=== PATIENT | female | born 1950 | race Caucasian/White ===

== ENCOUNTER → 2019-08-16 10:47 | Outpatient (BNVA) | payer MEDICARE, OTHER, SELFPAY | PROVIDERS: Family Provider Nurse Practitioner; Referring Provider Nurse Practitioner; Visit Provider Specialist | DX: M25.511 Pain in right shoulder (principal); S42.021A Displaced fracture of shaft of right clavicle, initial encounter for closed fracture; X58.XXXA Exposure to other specified factors, initial encounter | CPT/HCPCS: 73030 ==

== ENCOUNTER → 2019-09-04 10:47 | Outpatient (BNVA) | payer MEDICARE, OTHER, SELFPAY | PROVIDERS: Family Provider Nurse Practitioner; Visit Provider Specialist | DX: S42.001A Fracture of unspecified part of right clavicle, initial encounter for closed fracture (principal) | CPT/HCPCS: 73000 ==

== ENCOUNTER → 2019-09-20 14:58 | Outpatient (BNVA) | payer MEDICARE, OTHER, SELFPAY | PROVIDERS: Family Provider Nurse Practitioner; Visit Provider Nurse Practitioner | DX: R10.32 Left lower quadrant pain (principal); E78.2 Mixed hyperlipidemia | CPT/HCPCS: 80053; 81000; 85025 ==

== ENCOUNTER 2019-09-21 07:37 | Outpatient (CLI) | payer MEDICARE, OTHER, SELFPAY ==
--- NOTE | 2019-09-21 09:30 | CT_ITS ---
WS: [id number] CT ABDOMEN AND PELVIS NONCONTRAST HISTORY: pain abdomen, LEFT lower quadrant pain. TECHNIQUE: Imaging performed through the abdomen and pelvis. Coronal and sagittal reformats are submi tted. All CT scans at [facility] use at least one of these dose optimization techniques: automated exposure control; mA and/or kV adjustment per patient size (includes targeted exams where d ose is matched to clinical indication); or iterative reconstruction. DLP: 718.43 mGy.cm COMPARISON: None available. Lower thorax: Lung bases are clear. Small hiatal hernia. Liver: Normal, no mass or intrahepatic dilatation. Gallbladder: Unremarkable. Pancreas: Normal. Spleen: Markedly enlarged spleen extending over length of 17.2 cm. There are a few scattered calcific ations within the liver. Adrenal glands: Normal. Right kidney: Normal size with no stones, masses or atrophy. Left kidney: Normal size with no stones, mass or atrophy. Atherosclerosis of aorta. Small periaortic lymph nodes. No significant adenopathy. GI tract: Numerous diverticula in the descending and sigmoid colon. There is an area of inflammation and pericolonic stranding in the sigmoid region where there is a large distribution of diverticula. N o abscess or free air is identified. There is mild asymmetric thickening of the rectum, greater soft tissue thickening along the LEFT which may be some fluid. Abdominal wall: Intact. Pelvis: Normal. Osseous structures: S-shaped curvature lumbar spine. No bone destruction. Asymmetric disc bulging at L3-4 with mild central and LEFT foraminal stenosis. CT/CT abdomen pelvis wo con [id number] IMPRESSION: 1. Sigmoid diverticulitis without abscess or perforation identified at this ti me. 2. Innumerable sigmoid diverticula with additional scattered diverticula in th e descending colon. 3. Mild rectal wall thickening. 4. Marked splenomegaly. Probably on the basis of portal hypertension. Lymphoma should also be considered as a possible etiology. No adenopathy is identified.
== END 2019-09-21 07:38 | disposition home or self-care (01) ==
PROVIDERS: PCP Nurse Practitioner; Visit Provider Nurse Practitioner
DX: R10.32 Left lower quadrant pain (principal); I70.0 Atherosclerosis of aorta; K57.32 Diverticulitis of large intestine without perforation or abscess without bleeding; K57.30 Diverticulosis of large intestine without perforation or abscess without bleeding; R16.1 Splenomegaly, not elsewhere classified
CPT/HCPCS: 74176

== ENCOUNTER → 2019-10-03 13:07 | Outpatient (BNVA) | payer MEDICARE, OTHER, SELFPAY | PROVIDERS: PCP Nurse Practitioner; Visit Provider Nurse Practitioner | DX: R73.09 Other abnormal glucose (principal) | CPT/HCPCS: 83036 ==

== ENCOUNTER 2019-12-07 06:48 | Day surgery (SDC) | payer MEDICARE, OTHER, SELFPAY ==
[2019-12-06 09:47] VITALS: BMI 28.7
[2019-12-07 07:06] VITALS: BP 128/73; PULSE 66; RESP 18; TEMP 36.2
[2019-12-07] MEDS: sodium chloride 0.9% 1,000 ML 30 ML IV (07:13)
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
--- NOTE | 2019-12-07 07:47 | W.PM.OPSUD ---
Surgery/Procedure H&P Update DATE OF PROCEDURE: December 07, 2019 DATE H&P PERFORMED: 11/14/19 H&P UPDATE INFORMATION: No changes to prior documentation PREOP DIAGNOSIS: rectal pain, diarrhea PLANNED PROCEDURE: Operation Date: 12/07/19 08:00 Proposed Procedures p Colonoscopy(Not Applicable) - Kota Vuong MD
[2019-12-07 08:28] VITALS: BP 101/59; PULSE 66; RESP 16; TEMP 36.2; O2SAT 100
== END 2019-12-07 08:55 | disposition home or self-care (01) ==
PROVIDERS: PCP Nurse Practitioner; Visit Provider Surgery
PROC: 0DJD8ZZ Inspection of Lower Intestinal Tract, Via Natural or Artificial Opening Endoscopic (ICD-10-PCS; CPT 45378; principal; 2019-12-07 08:00)
DX: K62.89 Other specified diseases of anus and rectum (principal); R19.7 Diarrhea, unspecified; K57.30 Diverticulosis of large intestine without perforation or abscess without bleeding; K63.5 Polyp of colon; I48.91 Unspecified atrial fibrillation; I10 Essential (primary) hypertension; K21.9 Gastro-esophageal reflux disease without esophagitis; E78.2 Mixed hyperlipidemia
CPT/HCPCS: 12345; 45385; 88305; J2704; J7030

== ENCOUNTER → 2020-06-11 12:19 | Outpatient (BNVA) | payer MEDICARE, OTHER, SELFPAY | PROVIDERS: PCP Nurse Practitioner; Visit Provider Internal Medicine Cardiovascular Disease | DX: R06.02 Shortness of breath (principal); I48.11 Longstanding persistent atrial fibrillation; Z79.01 Long term (current) use of anticoagulants; I10 Essential (primary) hypertension; E78.2 Mixed hyperlipidemia; I34.0 Nonrheumatic mitral (valve) insufficiency | CPT/HCPCS: 80048; 80162 ==

== ENCOUNTER → 2020-07-09 14:45 | Outpatient (BNVA) | payer MEDICARE, OTHER, SELFPAY | PROVIDERS: PCP Nurse Practitioner; Visit Provider Nurse Practitioner | DX: R53.83 Other fatigue (principal); I10 Essential (primary) hypertension; I48.11 Longstanding persistent atrial fibrillation; Z79.01 Long term (current) use of anticoagulants | CPT/HCPCS: 80076; 82607; 83550; 84443; 85025 ==

== ENCOUNTER 2020-07-18 09:16 | Outpatient (CLI) | payer MEDICARE, OTHER, SELFPAY ==
[2020-07-18 09:55] LABS: Basophils % 0.5 %; Eosinophils % 0.8 %; Hematocrit 32.6 % (37.0-47.0); Hemoglobin 9.4 g/dL (11.5-15.3); Lymphocytes # 1.1 10^3/uL (0.8-4.8); Lymphocytes % 27.3 %; Mean Corpuscular HGB Conc 28.8 g/dL (30.0-36.0); Mean Corpuscular Hemoglobin 22.3 pg (28.0-34.0); Mean Corpuscular Volume 77.4 fL (81-99); Mean Platelet Volume 10.1 fL (7.4-10.4); Monocytes # 0.2 10^3/uL (0.2-0.9); Monocytes % 6.2 %; Neutrophils % 64.9 %; Nucleated Red Blood Cells % 0 %; Platelet Count 150 10^3/cmm (130-400); Red Blood Count 4.21 10^6/uL (4.1-5.3); Red Cell Distribution Width 17.8 % (12.1-15.1); White Blood Count 3.9 10^3/uL (4.0-10.0)
--- NOTE | 2020-07-18 15:07 | ONC CON_ITS ---
Dr. Browning New Patient Note Patient: Kristal Chung Unit #: [id number]: [id number] Dicatated By: Herminio Browning M.D.Date of Visit: Jul 18, 2020 Onc MED New Patient/Consult Referring Physician: Danita Mendosa History of Present Illness: Ms. Kristal Chung, is a 70-year-old female with a history of atrial fibrillation, on chronic anticoagulation with warfarin, hypertension, mitral regurg, seizure disorder, right shoulder dislocation, went to her PMD with progressive generalized weakness and fatigue and weight loss, as per patient she used to weigh around 185 pounds now down to 142 pounds, poor appetite and her lab work-up done on July 09, 2020 in her PMDs office showed white blood count 4.1 hemoglobin 9.7 hematocrit 33.1 MCV 79.2 platelets 179,000 with a normal differential iron studies shows iron 24, iron saturation 7.2 TIBC 331, B12 339, TSH 2.74, bilirubin 0.9. As per patient she underwent colonoscopy on December 07, [address] Vuong told her she got couple of polyps biopsies were obtained and polyp in the distal ascending colon shows hyperplastic polyp and in the rectum shows tubulovillous adenoma with high-grade dysplasia, subsequently patient was referred to Dr. Erick Mooney in [place], as per patient she underwent further endoscopic evaluation and resection of the rectal mass, and she was told by Dr. Mooney that there was no evidence of cancer and now scheduled to see him in August 2020 for follow-up and possible limited colonoscopy. Patient said he had no EGD done in November. And patient denies any blood in her stools denies any melena or hematochezia denies any hemoptysis or hematemesis denies any nosebleed or gum bleed denies any hematuria or vaginal bleeding denies any jaundice., Denies any night sweats, denies any recurrent fever but weight loss as mentioned above due to poor appetite due to decrease in activity due to early fatigue and progressive generalized weakness and fatigue. Patient denies any peripheral lymphadenopathy denies any abdominal fullness. Or abdominal pain. Patient has no history of anemia in the past Patient denies any Past Medical History: Ms. Chung's medical history consists of atrial fibrillation, hyperlipidemia, hypertension, mitral regurgitation, and siezure disorder. Past Surgical History: Ms. Novaks surgical/procedural history consists of breast biopsy, hysterectomy, and rectal surgery. Medications: Ala-Gold (2.5 %) Cream Topical t.i.d., Alph-E (400 Units) Capsule Oral daily, Cholecalciferol (50 mcg ) Tablet Oral daily, Coumadin Tablet Oral, Coumadin Tablet Oral, Cozaar (100 mg) Tablet Oral daily, Digox (250 mcg) Tablet Oral daily, Docusate Sodium (100 mg) Tablet Oral daily, Ferrous Sulfate 1 Tablet (of 325 (65 fe) mg) Oral b.i.d., hydroCHLOROthiazide (25 mg) Tablet Oral daily, Lopressor (50 mg) Tablet Oral b.i.d., Magnesium Oxide (400 mg) Capsule Oral daily, QC Zinc Tablet Oral Allergies: Atorvastatin Calcium and Fenofibrate. Social History: Ms. Chung is and she is unemployed. Ms. Chung has never smoked. She has no history of drinking. Ms. Chung reports the following support systems: lives with spouse, significant other, family, or friends. Family History: Ms. Chung's mother is alive. Ms. Chung's father at age 93: prostate cancer. Review Of Symptoms: Review of Systems is not available for this patient. Vital Signs: Performed on Jul 18, 2020 11:51: 8, 0, 0.00, 0.00 sq.m, 99 %, 66 /min, 18 /min, 128/67 mm(hg), 98.5 F, and 142.2 lbs (HIGH). Performance Status: 1 - No physically strenuous activity, but ambulatory and able to carry out light or sedentary work (e.g. office work, light house work). (ECOG) Physical Examination: ENMT - No mouth sores, no thrush, no jaundice, Respiratory - Lungs are clear to auscultation, Cardiovascular - Regular rate and rhythm of heart, Abdomen - Soft, bowel sounds present, Extremities - No visible edema. Lab/Imaging: Most recent lab results are not available for this patient. Impression: Microcytic hypochromic anemia most likely due to iron deficiency as labs done on July 09, 2020 in PMDs office shows iron 24 iron saturation 7.2% and TIBC 331, B12 339 hemoglobin 9.7 hematocrit 33.1 MCV 79.2 with a normal white blood count and platelets. Etiology most likely GI bleeding especially on anticoagulation, could be peptic ulcer disease or small bowel AVMs as colonoscopy done in November 2019 showed no obvious sign of bleeding but colon and rectal polyp status post resection. Or iron malabsorption but less likely Atrial fibrillation, on Coumadin Hypertension History of seizure disorder Plan: Discussed with patient regarding her labs showed white blood count 3.9 hemoglobin 9.4 hematocrit 33.6 platelets 150,000 MCV 77.4 Clinically, patient doing reasonably well in mild to moderate distress due to progressive generalized weakness and fatigue due to iron deficiency anemia, anemia work-up done in PMDs office on July 09, 2020 confirmed iron deficiency, most likely due to chronic GI blood loss probably from small bowel AVMs or peptic ulcer disease or gastritis as colonoscopy done in November 2019 was unremarkable for as far as bleeding is concerned she had 1 polyp which was hyperplastic polyp removed from ascending colon and other 1 which showed tubulovillous adenoma with high-grade dysplasia in the rectum for which she was referred to Dr. Mooney in [place] where she underwent endoscopic resection of rectal polyp, as per patient it was nonmalignant and now she is supposed to see Dr. Mooney for follow-up in August 2020. At this point, we will refer her to Dr. Vuong for EGD to rule out upper GI as source of bleeding and if unremarkable, will consider capsule endoscopy to rule out small bowel AVMs causing chronic GI blood loss. Mild leukopenia, etiology unclear, will monitor In the meantime we will start her on iron supplement she will take [id number] iron supplement twice a day for 1 month and then return to clinic in a month with CBC and iron studies if it shows persistent iron deficiency or if patient has iron intolerance, will consider parenteral iron. Signed By: Herminio Browning M.D. <<Signature on File>>
== END 2020-07-18 09:17 | disposition home or self-care (01) ==
LOC: ONCMED 09:19
PROVIDERS: PCP Nurse Practitioner; Visit Provider Internal Medicine Hematology & Oncology
DX: D50.9 Iron deficiency anemia, unspecified (principal); D72.819 Decreased white blood cell count, unspecified; Z87.19 Personal history of other diseases of the digestive system; I10 Essential (primary) hypertension; I48.91 Unspecified atrial fibrillation; Z79.01 Long term (current) use of anticoagulants
CPT/HCPCS: 36415; 85025; 99204

== ENCOUNTER → 2020-08-05 11:15 | Outpatient (BNVA) | payer MEDICARE, OTHER, SELFPAY | PROVIDERS: PCP Nurse Practitioner; Visit Provider Nurse Practitioner | DX: R05 Cough (principal); J90 Pleural effusion, not elsewhere classified | CPT/HCPCS: 71046 ==

== ENCOUNTER → 2020-08-16 08:18 | Outpatient (BNVA) | payer MEDICARE, OTHER, SELFPAY | PROVIDERS: PCP Nurse Practitioner; Visit Provider Surgery | DX: Z11.52 Encounter for screening for COVID-19 (principal); Z20.822 Contact with and (suspected) exposure to COVID-19 | CPT/HCPCS: 87635 ==

== ENCOUNTER → 2020-08-21 10:03 | Outpatient (BNVA) | payer MEDICARE, OTHER, SELFPAY | PROVIDERS: PCP Nurse Practitioner; Visit Provider Nurse Practitioner | DX: R05 Cough (principal) | CPT/HCPCS: 71046 ==

== ENCOUNTER 2020-08-22 06:19 | Day surgery (SDC) | payer MEDICARE, OTHER, SELFPAY ==
[2020-08-20 13:42] VITALS: BMI 25.9
--- NOTE | 2020-08-22 06:52 | W.PM.OPSUD ---
Surgery/Procedure H&P Update DATE OF PROCEDURE: August 22, 2020 DATE H&P PERFORMED: 08/13/20 H&P UPDATE INFORMATION: No changes to prior documentation PREOP DIAGNOSIS: rectal pain, diarrhea PLANNED PROCEDURE: Operation Date: 08/22/20 08:00 Proposed Procedures p EGD 71454 d50.9 R16.1 R63.4(Not Applicable) - Kota Vuong MD
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
[2020-08-22 07:16] VITALS: BP 142/91; PULSE 73; RESP 16; TEMP 36.6; O2SAT 99
[2020-08-22 08:01] VITALS: BP 110/58; PULSE 73; RESP 18; TEMP 36.1; O2SAT 97
--- NOTE | 2020-08-22 08:02 | ANE.PACU2 ---
Inpatient post-anesthesia follow up: Airway intact: Yes Vital signs: Temperature 97.8 F Pulse Rate 73 Respiratory Rate 16 Blood Pressure 142/91 Pulse Oximetry 99 Oxygen Delivery Me thod Room Air Oxygen Flow Rate Fraction of Inspir ed Oxygen Hydration adequate: Yes Nausea and vomiting: No Pain level: 1 Mental status: Baseline
[2020-08-22 08:16] VITALS: BP 121/60; PULSE 72; RESP 18; O2SAT 99
[2020-08-22] MEDS: sodium chloride 0.9% 1,000 ML 30 ML IV (08:29)
== END 2020-08-23 08:57 | disposition home or self-care (01) ==
PROVIDERS: PCP Nurse Practitioner; Visit Provider Surgery
PROC: 0DJ08ZZ Inspection of Upper Intestinal Tract, Via Natural or Artificial Opening Endoscopic (ICD-10-PCS; CPT 43235; principal; 2020-08-22 08:00)
DX: K62.89 Other specified diseases of anus and rectum (principal); R19.7 Diarrhea, unspecified; I48.91 Unspecified atrial fibrillation; I10 Essential (primary) hypertension; E78.2 Mixed hyperlipidemia; Z79.01 Long term (current) use of anticoagulants
CPT/HCPCS: 12345; 43235; J2704; J7030

== ENCOUNTER 2020-08-23 07:48 | Outpatient (CLI) | payer MEDICARE, OTHER, SELFPAY ==
[2020-08-23 08:20] LABS: Basophils % 0.5 %; Eosinophils % 0.9 %; Hematocrit 33.4 % (37.0-47.0); Hemoglobin 9.7 g/dL (11.5-15.3); Lymphocytes # 1.3 10^3/uL (0.8-4.8); Lymphocytes % 29.8 %; Mean Corpuscular Hemoglobin 22.9 pg (28.0-34.0); Mean Corpuscular Volume 78.8 fL (81-99); Mean Platelet Volume 9.6 fL (7.4-10.4); Monocytes # 0.3 10^3/uL (0.2-0.9); Monocytes % 7.8 %; Neutrophils # 2.57 10^3/uL (1.8-7.7); Neutrophils % 60.8 %; Nucleated Red Blood Cells % 0 %; Platelet Count 155 10^3/cmm (130-400); Red Blood Count 4.24 10^6/uL (4.1-5.3); Red Cell Distribution Width 18.4 % (12.1-15.1); White Blood Count 4.2 10^3/uL (4.0-10.0)
[2020-08-23 08:31] LABS: Ferritin 220 ng/mL (15-150); Iron 32 ug/dL (37-145); Percent Saturation 11.1 % (20-50); Total Iron Binding Capacity 287 mcg/dl; Unsaturated Iron Binding 255 ug/dL (112-347)
[2020-08-23 08:47] LABS: Vitamin B12 397 pg/mL (232-1245)
[2020-08-23 08:55] LABS: Folate Level 4.6 ng/mL (4.8-37.3)
--- NOTE | 2020-08-23 10:37 | ONC FU_ITS ---
Dr. Browning follow up note Patient: Kristal Chung Unit #: [id number]: 1950 Dicatated By: Herminio Browning M.D.Date of Visit:Aug 23, 2020 Onc Med Follow-up/Prog Note History of Present Illness: Ms. Kristal Chung, is a 70-year-old female with a history of atrial fibrillation, on chronic anticoagulation with warfarin, hypertension, mitral regurg, seizure disorder, right shoulder dislocation, went to her PMD with progressive generalized weakness and fatigue and weight loss, as per patient she used to weigh around 185 pounds now down to 142 pounds, poor appetite and her lab work-up done on July 09, 2020 in her PMDs office showed white blood count 4.1 hemoglobin 9.7 hematocrit 33.1 MCV 79.2 platelets 179,000 with a normal differential iron studies shows iron 24, iron saturation 7.2 TIBC 331, B12 339, TSH 2.74, bilirubin 0.9. As per patient she underwent colonoscopy on December 07, [address] Vuong told her she got couple of polyps biopsies were obtained and polyp in the distal ascending colon shows hyperplastic polyp and in the rectum shows tubulovillous adenoma with high-grade dysplasia, subsequently patient was referred to Dr. Erick Mooney in [place], as per patient she underwent further endoscopic evaluation and resection of the rectal mass, and she was told by Dr. Mooney that there was no evidence of cancer and now scheduled to see him in August 2020 for follow-up and possible limited colonoscopy. Patient said he had no EGD done in November. And patient denies any blood in her stools denies any melena or hematochezia denies any hemoptysis or hematemesis denies any nosebleed or gum bleed denies any hematuria or vaginal bleeding denies any jaundice., Denies any night sweats, denies any recurrent fever but weight loss as mentioned above due to poor appetite due to decrease in activity due to early fatigue and progressive generalized weakness and fatigue. Patient denies any peripheral lymphadenopathy denies any abdominal fullness. Or abdominal pain. Patient has no history of anemia in the past EGD done on August 22, 2020 showed no abnormality Came for follow-up, denies any specific complaint except mild abdominal discomfort and nausea with oral iron but no fever chills, no jaundice, no hemoptysis or hematemesis but dark-colored stools probably due to oral iron. No shortness of breath or palpitation at rest but mild dyspnea on exertion. Medications: Ala-Gold (2.5 %) Cream Topical t.i.d., Alph-E (400 Units) Capsule Oral daily, Cholecalciferol (50 mcg ) Tablet Oral daily, Coumadin Tablet Oral, Coumadin Tablet Oral, Cozaar (100 mg) Tablet Oral daily, Digox (250 mcg) Tablet Oral daily, Docusate Sodium (100 mg) Tablet Oral daily, Ferrous Sulfate 1 Tablet (of 325 (65 fe) mg) Oral b.i.d., hydroCHLOROthiazide (25 mg) Tablet Oral daily, Lopressor (50 mg) Tablet Oral b.i.d., Magnesium Oxide (400 mg) Capsule Oral daily, QC Zinc Tablet Oral Allergies: Atorvastatin Calcium and Fenofibrate. Review of Systems: Review of Systems is not available for this patient. Vital Signs: Performed on Aug 23, 2020 09:41 Weight - 140.4 lbs (LOW) BSA - 0.00 sq.m BMI - 0.00 Temperature - 97.8 F (LOW) Pulse - 83 /min Respiration - 18 /min BP - 134/80 mm(hg) O2 Sat - 99 % Pain - 0 Performance Status: 1 - No physically strenuous activity, but ambulatory and able to carry out light or sedentary work (e.g. office work, light house work). (ECOG) Physical Examination: ENMT - No mouth sores, no thrush, no jaundice, Respiratory - Lungs are clear to auscultation, Cardiovascular - Irregular rate and rhythm, Abdomen - Soft, bowel sounds present, Extremities - No visible edema. Lab/Imaging: Most recent lab results are not available for this patient. Impression: Microcytic hypochromic anemia most likely due to iron deficiency as labs done on July 09, 2020 in PMDs office shows iron 24 iron saturation 7.2% and TIBC 331, B12 339 hemoglobin 9.7 hematocrit 33.1 MCV 79.2 with a normal white blood count and platelets. Etiology most likely GI bleeding especially on anticoagulation, could be peptic ulcer disease or small bowel AVMs as colonoscopy done in November 2019 showed no obvious sign of bleeding but colon and rectal polyp status post resection. Or iron malabsorption but less likely, EGD done on August 22, 2020 shows no abnormality no evidence of gross bleeding Atrial fibrillation, on Coumadin Hypertension History of seizure disorder Plan: Discussed with patient regarding her labs white blood count 4.2 hemoglobin 9.7 compared to 9.4 previously hematocrit 33.4 MCV 78.8 platelets 155,000 and iron saturation 11.1% iron 32 ferritin 220, folate 4.6 which is low B12 397 Clinically, patient doing reasonably well, tolerating oral iron reasonably well but with expected side effects her follow-up CBC and iron studies shows no significant improvement, with persistent iron deficiency, and also folate deficiency, Clinically it appears she has iron deficiency anemia concurrent with folate deficiency mild to moderate intolerance to oral iron in addition to that probably malabsorption as there is no significant improvement in iron stores, and other possibility could be chronic GI bleeding probably from small bowel area due to AVMs as recently done EGD showed no evidence of gross bleeding and colonoscopy done last year showed no pathology. at this point ,we will consider folic acid 1 mg p.o. daily and also consider his discontinue oral iron and consider parenteral iron Injectafer 750 mg IV weekly x2 for iron deficiency anemia and then she will return to clinic 1 month after second dose of Injectafer with CBC and iron studies and folate level. Signed By: Herminio Browning M.D. <<Signature on File>>
== END 2020-08-23 07:49 | disposition home or self-care (01) ==
PROVIDERS: PCP Nurse Practitioner; Visit Provider Internal Medicine Hematology & Oncology
DX: D50.9 Iron deficiency anemia, unspecified (principal); I48.91 Unspecified atrial fibrillation; I10 Essential (primary) hypertension; G40.909 Epilepsy, unspecified, not intractable, without status epilepticus; Z79.01 Long term (current) use of anticoagulants; Z79.899 Other long term (current) drug therapy
CPT/HCPCS: 82607; 82728; 82746; 83540; 83550; 85025; 99214

== ENCOUNTER 2020-08-28 07:56 | Outpatient (CLI) | payer MEDICARE, OTHER, SELFPAY ==
--- NOTE | 2020-08-28 08:30 | CT_ITS ---
WS: [id number] CT CHEST WITH INTRAVENOUS CONTRAST HISTORY: R93.89 - Abnormal findings on diagnostic imaging of other specified body structures TECHNIQUE: Contiguous 5 mm axial imaging performed on the thorax. Coronal and sagittal reformats are submitted. All CT scans at [facility] use at least one of these dose optimization techniq ues: automated exposure control; mA and/or kV adjustment per patient size (includes targeted exams wh ere dose is matched to clinical indication); or iterative reconstruction. CONTRAST: Omnipaque 300; 95 mL IV. DLP: 1006.62 mGycm COMPARISON: Chest radiograph 08/21/2020 Lungs and central airway: Large layering mobile pleural effusion on the RIGHT. Resulting in significa nt compressive atelectasis of the RIGHT lower lobe and mild atelectasis of the RIGHT middle lobe. Soft tissue at the hilum is probably atelectatic lung. Bronchial neoplasm is not evident. 3 mm noncal cified nodule medial LEFT upper lobe, image 10 of series 3. Additional micronodule LEFT lower lobe, i mage 40 series 3. No mass or pneumonia. Heart and pericardium: Mildly enlarged LEFT atrium. No pericardial effusion. Mediastinum and nely: Numerous small mediastinal and hilar lymph nodes. Anterior mediastinal lymph no sarina measure up to 11 mm in diameter. There are smaller lymph nodes paratracheal and periaortic and at the hilar regions. There is a focal soft tissue consolidation centered at the RIGHT hilum measuring 3.8 x 1.8 cm which is probably atelectatic lung. A superimposed neoplasm not excluded. There are very small retrocrural lymph nodes. Vessels: Normal size aortic and pulmonary artery. No coronary artery calcifications. Chest wall and lower neck: No soft tissue masses. Upper abdomen: Liver and spleen are enlarged. Liver measures up to 17 cm in length. The spleen is mar kedly enlarged and not included entirely measuring at least 20 cm in length. Splenomegaly was also se en on 09/21/2019 but progressed since that examination. There is mild heterogeneity scattered througho ut the spleen. No discrete mass. Kidneys are being medially displaced by the enlarged liver and splee n. There is evidence for portal hypertension and varices. There are also small lymph nodes in the ret roperitoneum. None of these lymph nodes are greater than a centimeter. Osseous structures: No destructive process. CT/CT chest w con* [id number] IMPRESSION: 1. Large layering RIGHT pleural effusion with compressive atelectasis of the R IGHT lower and portions of the RIGHT middle lobe. 2. Markedly enlarged spleen with progression since 09/21/2019 and moderate hepa tomegaly. There are also splenic varices. Portal venous hypertension is likely. Due to the extensive enlargement of the spleen and subcentimeter retroperitone al and mediastinal/hilar lymph nodes lymphoma or metastatic disease also needs to be considered. 3. Mild LEFT atrial enlargement. 4. Increased soft tissue at the RIGHT hilum measures 3.8 x 1.8 cm. This is pro bably atelectatic lung but neoplasm or coexisting atelectasis with neoplasm maddi uld be considered and excluded. Bronchoscopy may be necessary.
[2020-08-28 08:39] LABS: Blood Urea Nitrogen 16 mg/dL (8-23)
[2020-08-28] MEDS: iohexol 300 mg/mL 100 mL Btl IV (08:45)
== END 2020-08-28 07:57 | disposition home or self-care (01) ==
PROVIDERS: PCP Nurse Practitioner; Visit Provider Nurse Practitioner
DX: R93.89 Abnormal findings on diagnostic imaging of other specified body structures (principal); D50.9 Iron deficiency anemia, unspecified; I10 Essential (primary) hypertension; R10.32 Left lower quadrant pain; J90 Pleural effusion, not elsewhere classified; R16.1 Splenomegaly, not elsewhere classified; I51.7 Cardiomegaly
CPT/HCPCS: 71260; 82565; 84520; Q9967

== ENCOUNTER → 2020-09-02 12:34 | Day surgery (SDC) | payer MEDICARE, OTHER, SELFPAY ==
[2020-09-02 12:56] VITALS: BMI 25.7
[2020-09-02 12:58] VITALS: BP 149/77; PULSE 91; RESP 18; TEMP 36.8; O2SAT 99
[2020-09-02 14:14] LABS: INR 2.32 (0.8-1.2)
--- NOTE | 2020-09-02 15:03 | XR_ITS ---
WS: [id number] Exam: XR chest 1V portable [id number] Date/Time of Exam: 09/02/2020 3:19 PM Reason For Exam: post-thoracentises Comparison 08/21/2020. The lungs are clear and fully inflated. Normal cardiomediastinal structures and bony elements. Tiny r esidual right basal pleural effusion. XR/XR chest 1V portable [id number] IMPRESSION: 1. Tiny residual right basal pleural effusion otherwise negative chest.
[2020-09-02 15:05] VITALS: BP 130/64; PULSE 92; RESP 18; O2SAT 97
[2020-09-02 15:48] LABS: Body Fluid Polynuclear #Cells 0.017; Body Fluid WBC 274 /uL; Monocytes # Body Fluid 0.257; RBC, Body Fluid 0 10^3/uL
[2020-09-02 15:52] LABS: Apprearance, Body Fluid CLEAR; Color, Body Fluid PALE YELLOW; PATH Referral YES
--- NOTE | 2020-09-02 16:17 | PM.OP ---
Operative Report Date of procedure: September 02, 2020 Pulmonary & Critical Care Medicine Procedure -right pleural fluid thoracentesis Procedure: Right pleural fluid thoracentesis Indication: Right pleural effusion Brand Sales Consultant(s): Vikas Garsia MD Consent: Signed and placed in chart Anesthesia: 10 cc 1% lidocaine without epinephrine Description: Right pleural effusion was localized using ultrasound guidance and the site was marked accordingly. After chlorhexidine skin prep, area was draped in a sterile manner. 1% lidocaine was used for local anesthesia. Thoracentesis catheter was then inserted into the pleural space with aspiration of 1900 cc of pleural fluid. Appearance was straw-colored. Pleural fluid sent for analysis, cytology and cultures Ultrasound guidance used: Yes. Image saved to ultrasound machine yes. PRE PROCEDURE POST PROCEDURE EBL: 5 cc Complications: None PCXR:No evidence of pneumonia Pre-op Diagnosis: rectal pain, diarrhea Associated Problem List Diagnoses (1) Pleural effusion, right: (2) Dyspnea on exertion: (3) Unintentional weight loss:
[2020-09-02 16:48] LABS: Albumin Body Fluid 2.6 g/dL; Cholesterol Body Fluid 50 mg/dL (0-200); Fluid Alkaline Phos. 48 IU/L; LDH Body Fluid 139 U/L; Triglycerides Body Fluid 48 mg/dL (0-150); Uric Acid Body Fluid 5 mg/dL
[2020-09-02 16:51] LABS: Body Fluid Specific Gravity 1.015
[2020-09-02 17:37] LABS: Total Protein Pleural Fluid 3.4 g/dL
== END ==
PROVIDERS: PCP Nurse Practitioner; Visit Provider Internal Medicine Pulmonary Disease
DX: J90 Pleural effusion, not elsewhere classified (principal); R06.00 Dyspnea, unspecified; R63.4 Abnormal weight loss; Z68.25 Body mass index [BMI] 25.0-25.9, adult
CPT/HCPCS: 71045; 80500; 82042; 82465; 82945; 83615; 83986; 84075; 84157; 84315; 84478; 84560; 85610; 87070; 87075; 87205; 88112; 88305; 89050

== ENCOUNTER 2020-10-04 08:52 | Outpatient (CLI) | payer MEDICARE, OTHER, SELFPAY ==
--- NOTE | 2020-10-04 09:16 | XR_ITS ---
WS: [id number] Exam: XR chest 2V* [id number] Date/Time of Exam: 10/04/2020 9:21 AM Reason For Exam: rule out pleural effusion Comparison 09/02/2020. Right basal pleural effusion has developed since the previous study. There is compressive atelectasis of the middle and lower lobes the right lung. The left lung is clear. No pneumothorax. Normal cardio mediastinal structures. Regional bony elements are intact. XR/XR chest 2V* [id number] IMPRESSION: 1. Right basal pleural effusion with compressive atelectasis of the middle and lower lobes the right lung.
[2020-10-04 09:48] LABS: Basophils # 0.1 10^3/uL (0.0-0.1); Basophils % 0.9 %; Eosinophils # 0.1 10^3/uL (0.0-0.8); Eosinophils % 1.8 %; Hematocrit 37.2 % (37.0-47.0); Hemoglobin 10.7 g/dL (11.5-15.3); Lymphocytes # 1.5 10^3/uL (0.8-4.8); Lymphocytes % 25.7 %; Mean Corpuscular HGB Conc 28.8 g/dL (30.0-36.0); Mean Corpuscular Hemoglobin 24.5 pg (28.0-34.0); Mean Corpuscular Volume 85.1 fL (81-99); Mean Platelet Volume 9.8 fL (7.4-10.4); Monocytes # 0.5 10^3/uL (0.2-0.9); Monocytes % 8.1 %; Neutrophils # 3.59 10^3/uL (1.8-7.7); Neutrophils % 63.1 %; Nucleated Red Blood Cells % 0 %; Platelet Count 134 10^3/cmm (130-400); Red Blood Count 4.37 10^6/uL (4.1-5.3); Red Cell Distribution Width 17.8 % (12.1-15.1); White Blood Count 5.7 10^3/uL (4.0-10.0)
[2020-10-04 10:06] LABS: INR 1.38 (0.8-1.2)
[2020-10-04 10:13] LABS: Digoxin 1.4 ng/mL (0.6-1.2)
[2020-10-04 10:18] LABS: NT Pro B Type Natriuretic Pept 2083 pg/mL (0-125)
== END 2020-10-04 08:53 | disposition home or self-care (01) ==
LOC: RAD 09:04
PROVIDERS: PCP Nurse Practitioner; Visit Provider Internal Medicine Pulmonary Disease
DX: J90 Pleural effusion, not elsewhere classified (principal); I48.91 Unspecified atrial fibrillation
CPT/HCPCS: 36415; 71046; 80162; 83880; 85025; 85610

== ENCOUNTER 2020-10-31 09:33 | Outpatient (CLI) | payer MEDICARE, OTHER, SELFPAY ==
--- NOTE | 2020-10-31 09:44 | USCV_ITS ---
Kristal Chung Age: 70 Gender: F : 1950 Exam Date: 10/31/2020 10:17 Ordering Phys: Nicholas Cordova Technologist: Denise Shannon [place] [facility] [place]: ATELECTASIS BP: 120 / 66 HR: 71 Rhythm: Sinus Technical Quality: Adequate MEASUREMENTS (Male / Female) Normal Values 2D ECHO LV Diastolic Diameter PLAX 4.7 cm 4.2 - 5.9 / 3.9 - 5.3 cm LV Systolic Diameter PLAX 2.8 cm IVS Diastolic Thickness 0.9 cm 0.6 - 1.0 / 0.6 - 0.9 cm IVS Systolic Thickness 1.6 cm LVPW Diastolic Thickness 1.0 cm 0.6 - 1.0 / 0.6 - 0.9 cm LVPW Systolic Thickness 1.6 cm RV Chamber Size 2.5 cm LVOT Diameter 2.0 cm LV Ejection Fraction 2D Teich 72.1 % LV Ejection Fraction MOD 2C 64.9 % LV Ejection Fraction 2C AL 64.7 % LA Diameter 3.7 cm LA Width 3.4 cm LA Height 4.8 cm RA Width 3.1 cm RA Height 4.3 cm Aorta at Sinotubular Diameter 2.1 cm M-MODE Aortic Annulus Diameter 2.5 cm LA Ao Ratio MM 1.5 MV E Point Septal Separation 0.3 cm DOPPLER AV Peak Velocity 139.0 cm/s LVOT Peak Velocity 108.0 cm/s AV Area Cont Eq vti 2.5 cm squared AV Area Cont Eq pk 2.5 cm squared TR Peak Velocity 304.0 cm/s TR Peak Gradient 37.0 mmHg TV Peak E Velocity 67.0 cm/s PV Peak Velocity 130.0 cm/s RV Acceleration Time 0.1 s RV Ejection Time 0.3 s RV AcT/ET 0.3 FINDINGS Left Ventricle Normal left ventricular size, systolic function and wall thickness, with no regional wall motion abnormalities. Left ventricular ejection fraction is estimated at 70 %. Abnormal diastolic function. Right Ventricle Normal right ventricular size and systolic function. Right ventricular systolic pressure 26 mmHg. Right Atrium Normal right atrial size. Right atrial pressure estimated at 3 mm Hg. Left Atrium Moderately increased left atrial size. Mitral Valve Structurally normal mitral valve. No mitral valve stenosis. Mild-moderate mitral valve regurgitation. Aortic Valve Structurally normal trileaflet aortic valve. No aortic valve stenosis. No aortic valve regurgitation. Tricuspid Valve Structurally normal tricuspid valve. Mild tricuspid valve regurgitation. Pulmonic Valve Pulmonic valve not well visualized. Trace pulmonary valve regurgitation. Pericardium No pericardial effusion. Aorta Normal size aortic root and proximal ascending aorta. Normal sized inferior vena cava with normal respiratory variations. CONCLUSIONS 1. Normal left ventricular size, systolic function and wall thickness, with no regional wall motion abnormalities. Left ventricular ejection fraction is estimated at 70 %. Abnormal diastolic function. 2. Moderately increased left atrial size. 3. Mild-moderate mitral valve regurgitation. 4. Pulmonary artery pressure estimated at 26 mm Hg. 5. No significant change when compared to 02/17/2019. Kennedi Rosa MD (Electronically Signed) Final Date: 02 November 2020 11:49 S
== END 2020-10-31 09:34 | disposition home or self-care (01) ==
LOC: RAD 09:34
PROVIDERS: PCP Nurse Practitioner; Visit Provider Nurse Practitioner
DX: J98.11 Atelectasis (principal); I34.0 Nonrheumatic mitral (valve) insufficiency
CPT/HCPCS: 93306

== ENCOUNTER → 2020-11-14 16:29 | Outpatient (BNVA) | payer MEDICARE, OTHER, SELFPAY | PROVIDERS: PCP Nurse Practitioner; Visit Provider Internal Medicine Cardiovascular Disease | DX: I50.30 Unspecified diastolic (congestive) heart failure (principal); R06.02 Shortness of breath; I50.33 Acute on chronic diastolic (congestive) heart failure; Z79.01 Long term (current) use of anticoagulants; I48.11 Longstanding persistent atrial fibrillation; I48.91 Unspecified atrial fibrillation | CPT/HCPCS: 80048; 83880 ==

== ENCOUNTER → 2020-11-29 08:17 | Outpatient (BNVA) | payer MEDICARE, OTHER, SELFPAY | PROVIDERS: PCP Nurse Practitioner; Visit Provider Internal Medicine Cardiovascular Disease | DX: I10 Essential (primary) hypertension (principal); I48.11 Longstanding persistent atrial fibrillation; R06.00 Dyspnea, unspecified; E78.2 Mixed hyperlipidemia | CPT/HCPCS: 80048; 83880 ==

== ENCOUNTER → 2020-12-10 13:06 | Outpatient (BNVA) | payer MEDICARE, OTHER, SELFPAY | PROVIDERS: PCP Nurse Practitioner; Visit Provider Internal Medicine Pulmonary Disease | DX: J90 Pleural effusion, not elsewhere classified (principal); J98.11 Atelectasis | CPT/HCPCS: 71046 ==

== ENCOUNTER → 2021-01-15 10:48 | Outpatient (BNVA) | payer MEDICARE, OTHER, SELFPAY | PROVIDERS: PCP Nurse Practitioner; Visit Provider Internal Medicine Cardiovascular Disease | DX: I48.91 Unspecified atrial fibrillation (principal); I48.11 Longstanding persistent atrial fibrillation; I50.33 Acute on chronic diastolic (congestive) heart failure; R06.00 Dyspnea, unspecified; R06.02 Shortness of breath | CPT/HCPCS: 80048; 83880; 85610 ==

== ENCOUNTER → 2021-03-03 12:15 | Outpatient (BNVA) | payer MEDICARE, OTHER, SELFPAY | PROVIDERS: PCP Nurse Practitioner; Visit Provider Internal Medicine Cardiovascular Disease | DX: I48.11 Longstanding persistent atrial fibrillation (principal); I50.32 Chronic diastolic (congestive) heart failure | CPT/HCPCS: 83880 ==

== ENCOUNTER → 2021-03-13 08:43 | Outpatient (BNVA) | payer MEDICARE, OTHER, SELFPAY | PROVIDERS: PCP Nurse Practitioner; Visit Provider Internal Medicine Cardiovascular Disease | DX: I50.32 Chronic diastolic (congestive) heart failure (principal); R06.00 Dyspnea, unspecified; E78.5 Hyperlipidemia, unspecified | CPT/HCPCS: 80048; 83880 ==

== ENCOUNTER → 2021-05-27 09:19 | Outpatient (BNVA) | payer MEDICARE, OTHER, SELFPAY | PROVIDERS: PCP Nurse Practitioner; Visit Provider Nurse Practitioner | DX: R73.9 Hyperglycemia, unspecified (principal); L24.7 Irritant contact dermatitis due to plants, except food; I10 Essential (primary) hypertension | CPT/HCPCS: 80053; 83036 ==

== ENCOUNTER → 2021-07-16 10:14 | Outpatient (BNVA) | payer MEDICARE, OTHER, SELFPAY | PROVIDERS: PCP Nurse Practitioner; Visit Provider Internal Medicine Cardiovascular Disease | DX: I11.0 Hypertensive heart disease with heart failure (principal); I50.32 Chronic diastolic (congestive) heart failure; I48.11 Longstanding persistent atrial fibrillation; Z79.01 Long term (current) use of anticoagulants; R16.1 Splenomegaly, not elsewhere classified; I34.0 Nonrheumatic mitral (valve) insufficiency; E78.2 Mixed hyperlipidemia | CPT/HCPCS: 99214 ==

== ENCOUNTER → 2021-07-18 09:48 | Outpatient (BNVA) | payer MEDICARE, OTHER, SELFPAY | PROVIDERS: PCP Nurse Practitioner; Visit Provider Internal Medicine Cardiovascular Disease | DX: I48.11 Longstanding persistent atrial fibrillation (principal); I11.0 Hypertensive heart disease with heart failure; I50.33 Acute on chronic diastolic (congestive) heart failure ==

== ENCOUNTER → 2021-07-22 16:24 | Outpatient (BNVA) | payer MEDICARE, OTHER, SELFPAY | PROVIDERS: PCP Nurse Practitioner; Visit Provider Internal Medicine Cardiovascular Disease | DX: Z79.01 Long term (current) use of anticoagulants (principal) ==

== ENCOUNTER → 2021-07-30 15:10 | Outpatient (BNVA) | payer MEDICARE, OTHER, SELFPAY | PROVIDERS: PCP Nurse Practitioner; Visit Provider Internal Medicine Cardiovascular Disease | DX: Z79.01 Long term (current) use of anticoagulants (principal) ==

== ENCOUNTER → 2021-08-07 09:27 | Outpatient (BNVA) | payer MEDICARE, OTHER, SELFPAY | PROVIDERS: PCP Nurse Practitioner; Visit Provider Internal Medicine Cardiovascular Disease | DX: I48.11 Longstanding persistent atrial fibrillation (principal); Z79.01 Long term (current) use of anticoagulants ==

== ENCOUNTER → 2021-08-15 08:43 | Outpatient (BNVA) | payer MEDICARE, OTHER, SELFPAY | PROVIDERS: PCP Nurse Practitioner; Visit Provider Internal Medicine Cardiovascular Disease | DX: Z79.01 Long term (current) use of anticoagulants (principal) ==

== ENCOUNTER → 2021-08-27 10:57 | Outpatient (BNVA) | payer MEDICARE, OTHER, SELFPAY | PROVIDERS: PCP Nurse Practitioner; Visit Provider Internal Medicine Cardiovascular Disease | DX: Z79.01 Long term (current) use of anticoagulants (principal) ==

== ENCOUNTER → 2021-09-03 08:51 | Outpatient (BNVA) | payer MEDICARE, OTHER, SELFPAY | PROVIDERS: PCP Nurse Practitioner; Visit Provider Internal Medicine Cardiovascular Disease | DX: Z79.01 Long term (current) use of anticoagulants (principal) ==

== ENCOUNTER → 2021-09-12 09:40 | Outpatient (BNVA) | payer MEDICARE, OTHER, SELFPAY | PROVIDERS: PCP Nurse Practitioner; Visit Provider Internal Medicine Cardiovascular Disease | DX: Z79.01 Long term (current) use of anticoagulants (principal) ==

== ENCOUNTER → 2021-09-19 10:24 | Outpatient (BNVA) | payer MEDICARE, OTHER, SELFPAY | PROVIDERS: PCP Nurse Practitioner; Visit Provider Internal Medicine Cardiovascular Disease | DX: Z79.01 Long term (current) use of anticoagulants (principal) ==

== ENCOUNTER → 2021-09-26 08:58 | Outpatient (BNVA) | payer MEDICARE, OTHER, SELFPAY | PROVIDERS: PCP Nurse Practitioner; Visit Provider Internal Medicine Cardiovascular Disease | DX: Z79.01 Long term (current) use of anticoagulants (principal) ==

== ENCOUNTER → 2021-10-02 09:42 | Outpatient (BNVA) | payer MEDICARE, OTHER, SELFPAY | PROVIDERS: PCP Nurse Practitioner; Visit Provider Internal Medicine Cardiovascular Disease | DX: Z79.01 Long term (current) use of anticoagulants (principal) ==

== ENCOUNTER → 2021-10-10 10:02 | Outpatient (BNVA) | payer MEDICARE, OTHER, SELFPAY | PROVIDERS: PCP Nurse Practitioner; Visit Provider Internal Medicine Cardiovascular Disease | DX: Z79.01 Long term (current) use of anticoagulants (principal) ==

== ENCOUNTER → 2021-10-15 09:55 | Outpatient (BNVA) | payer MEDICARE, OTHER, SELFPAY | PROVIDERS: PCP Nurse Practitioner; Visit Provider Internal Medicine Cardiovascular Disease | DX: Z79.01 Long term (current) use of anticoagulants (principal) ==

== ENCOUNTER → 2021-10-23 08:16 | Outpatient (BNVA) | payer MEDICARE, OTHER, SELFPAY | PROVIDERS: PCP Nurse Practitioner; Visit Provider Internal Medicine Cardiovascular Disease | DX: Z79.01 Long term (current) use of anticoagulants (principal) ==

== ENCOUNTER → 2021-11-06 09:34 | Outpatient (BNVA) | payer MEDICARE, OTHER, SELFPAY | PROVIDERS: PCP Nurse Practitioner; Visit Provider Internal Medicine Cardiovascular Disease | DX: Z79.01 Long term (current) use of anticoagulants (principal) ==

== ENCOUNTER → 2021-11-14 11:39 | Outpatient (BNVA) | payer MEDICARE, OTHER, SELFPAY | PROVIDERS: PCP Nurse Practitioner; Visit Provider Internal Medicine Cardiovascular Disease | DX: Z79.01 Long term (current) use of anticoagulants (principal) ==

== ENCOUNTER → 2021-11-19 08:51 | Outpatient (BNVA) | payer MEDICARE, OTHER, SELFPAY | PROVIDERS: PCP Nurse Practitioner; Visit Provider Internal Medicine Cardiovascular Disease | DX: Z79.01 Long term (current) use of anticoagulants (principal) ==

== ENCOUNTER → 2021-11-26 09:17 | Outpatient (BNVA) | payer MEDICARE, OTHER, SELFPAY | PROVIDERS: PCP Nurse Practitioner; Visit Provider Internal Medicine Cardiovascular Disease | DX: Z79.01 Long term (current) use of anticoagulants (principal) ==

== ENCOUNTER → 2021-12-02 10:25 | Outpatient (BNVA) | payer MEDICARE, OTHER, SELFPAY | PROVIDERS: PCP Nurse Practitioner; Visit Provider Internal Medicine Cardiovascular Disease | DX: Z79.01 Long term (current) use of anticoagulants (principal) ==

== ENCOUNTER → 2022-02-18 13:37 | Outpatient (BNVA) | payer MEDICARE, OTHER, SELFPAY | PROVIDERS: PCP Nurse Practitioner; Visit Provider Nurse Practitioner | DX: D50.9 Iron deficiency anemia, unspecified (principal); I48.11 Longstanding persistent atrial fibrillation; I10 Essential (primary) hypertension | CPT/HCPCS: 80053; 83540; 84443; 85025 ==

== ENCOUNTER → 2022-02-20 08:18 | Outpatient (BNVA) | payer MEDICARE, OTHER, SELFPAY | PROVIDERS: PCP Nurse Practitioner; Visit Provider Nurse Practitioner | DX: R73.09 Other abnormal glucose (principal); R73.9 Hyperglycemia, unspecified | CPT/HCPCS: 83036 ==

== ENCOUNTER 2022-02-24 09:17 | Outpatient (CLI) | payer MEDICARE, OTHER, SELFPAY ==
--- NOTE | 2022-02-24 09:29 | XR_ITS ---
WS: [id number] Lumbar spine, 3 views, 02/24/2022 Clinical Data: M54.9 - Dorsalgia, unspecified Comparison: None. Findings: No compression fractures or subluxation is seen. There is a dextroscoliosis of the lumbar spine. Ther e is degenerative disc narrowing at all levels from L2-L3 through L5-S1. The transverse processes and SI joints are normal. There are osteophytes from L1 through L4. XR/XR lumbar spine 2-3V* [id number] Impression: 1. Dextroscoliosis with degenerative change at multiple levels. 2. Multilevel degenerative disc change.
--- NOTE | 2022-02-24 09:29 | XR_ITS ---
WS: [id number] Cervical spine, 3 views, 02/24/2022 Clinical Data: M54.9 - Dorsalgia, unspecified Comparison: None. Findings: No compression fractures are seen. There is degenerative disc narrowing at C5-C6 with anter ior, lateral and posterior spurring.. There is no prevertebral soft tissue swelling. The odontoid is unremarkable. The soft tissues of the neck and the lung apices are normal. XR/XR cervical spine 3V* [id number] Impression: 1. Degenerative disc narrowing at C5-C6. 2. Osteoarthritis C5-C6.
--- NOTE | 2022-02-24 09:29 | XR_ITS ---
WS: [id number] Thoracic spine, 3 views, 02/24/2022 Clinical Data: M54.9 - Dorsalgia, unspecified Comparison: None. Findings: There is a slight levoscoliosis. There is moderate osteoarthritic spurring. The paravertebral regions are normal. No compression fractures are seen. The disc heights are normal. XR/XR thoracic spine 3V* [id number] Impression: Moderate osteoarthritis of the thoracic vertebral bodies.
== END 2022-02-24 09:18 | disposition home or self-care (01) ==
LOC: RAD 09:19
PROVIDERS: PCP Nurse Practitioner; Visit Provider Nurse Practitioner
DX: M47.814 Spondylosis without myelopathy or radiculopathy, thoracic region (principal); M41.86 Other forms of scoliosis, lumbar region; M47.812 Spondylosis without myelopathy or radiculopathy, cervical region; I48.11 Longstanding persistent atrial fibrillation; I13.0 Hypertensive heart and chronic kidney disease with heart failure and stage 1 through stage 4 chronic kidney disease, or unspecified chronic kidney disease; I50.32 Chronic diastolic (congestive) heart failure; N18.2 Chronic kidney disease, stage 2 (mild); I34.0 Nonrheumatic mitral (valve) insufficiency; E11.65 Type 2 diabetes mellitus with hyperglycemia; R16.1 Splenomegaly, not elsewhere classified; E78.2 Mixed hyperlipidemia; R21 Rash and other nonspecific skin eruption
CPT/HCPCS: 72040; 72072; 72100; 99214

== ENCOUNTER 2022-03-23 10:17 | Outpatient (CLI) | payer MEDICARE, OTHER, SELFPAY ==
[2022-03-23 11:07] LABS: Prothrombin Time (Patient) 48.6 Seconds (12.0-15.1)
[2022-03-23 13:41] LABS: INR 5.28 (0.83-1.21)
== END 2022-03-23 10:18 | disposition home or self-care (01) ==
LOC: LAB 10:21
PROVIDERS: PCP Nurse Practitioner; Visit Provider Internal Medicine Cardiovascular Disease
DX: I48.11 Longstanding persistent atrial fibrillation (principal)
CPT/HCPCS: 85610

== ENCOUNTER → 2022-08-25 14:27 | Outpatient (BNVA) | payer MEDICARE, OTHER, SELFPAY | PROVIDERS: PCP Nurse Practitioner; Visit Provider Nurse Practitioner | DX: E11.65 Type 2 diabetes mellitus with hyperglycemia (principal); E55.9 Vitamin D deficiency, unspecified | CPT/HCPCS: 80053; 80061; 81000; 82306; 82607; 83036; 83721; 84443 ==

== ENCOUNTER → 2022-09-08 15:22 | Outpatient (BNVA) | payer MEDICARE, OTHER, SELFPAY | PROVIDERS: PCP Nurse Practitioner; Visit Provider Internal Medicine Cardiovascular Disease | DX: I13.0 Hypertensive heart and chronic kidney disease with heart failure and stage 1 through stage 4 chronic kidney disease, or unspecified chronic kidney disease (principal); I50.32 Chronic diastolic (congestive) heart failure; E11.65 Type 2 diabetes mellitus with hyperglycemia; N18.2 Chronic kidney disease, stage 2 (mild); R06.00 Dyspnea, unspecified; I48.11 Longstanding persistent atrial fibrillation; I34.0 Nonrheumatic mitral (valve) insufficiency; E78.2 Mixed hyperlipidemia | CPT/HCPCS: 36415; 80162; 99214 ==

== ENCOUNTER → 2022-11-17 15:10 | Outpatient (BNVA) | payer MEDICARE, OTHER, SELFPAY | PROVIDERS: PCP Nurse Practitioner; Visit Provider Nurse Practitioner | DX: E11.65 Type 2 diabetes mellitus with hyperglycemia (principal) | CPT/HCPCS: 80053; 83036 ==

== ENCOUNTER → 2023-02-09 15:39 | Outpatient (BNVA) | payer MEDICARE, OTHER, SELFPAY | PROVIDERS: PCP Nurse Practitioner; Visit Provider Nurse Practitioner | DX: E11.65 Type 2 diabetes mellitus with hyperglycemia (principal); E78.1 Pure hyperglyceridemia; N18.2 Chronic kidney disease, stage 2 (mild) | CPT/HCPCS: 80053; 83036 ==

== ENCOUNTER → 2023-03-25 11:56 | Outpatient (BNVA) | payer MEDICARE, OTHER, SELFPAY | PROVIDERS: PCP Nurse Practitioner; Visit Provider Internal Medicine Cardiovascular Disease | DX: R06.02 Shortness of breath (principal); I48.11 Longstanding persistent atrial fibrillation | CPT/HCPCS: 36415; 80048; 83880 ==

== ENCOUNTER 2023-04-04 12:16 | Emergency (ER) | payer MEDICARE, OTHER, SELFPAY ==
[2023-04-04 12:26] VITALS: BP 145/79; PULSE 84; TEMP 36.7; O2SAT 97; BMI 27.2
--- NOTE | 2023-04-04 12:30 | ECG_ITS ---
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 Measurements Intervals [place] Rate: 83 P: 0 VA: 0 QRS: -10 QRSD: 86 T: -53 QT: 335 QTc: 395 Interpretive Statements ATRIAL FIBRILLATION WITH ABERRANT CONDUCTION OR VENTRICULAR PREMATURE COMPLEXES SEPTAL MYOCARDIAL INFARCTION , PROBABLY OLD [40+ ms Q WAVE IN V1/V2] ST changes suggestive of cardiac ischemia Compared to ECG 05/29/2014 06:08:52 Ventricular premature complex(es) now present Electronically Signed On 04-05-2023 9:17:54 RETAIL PL[employer]NER by Tanya Valdes M.D. [email or web address]
--- NOTE | 2023-04-04 12:34 | XRR_ITS ---
PROCEDURE INFORMATION: Exam: XR Chest Exam date and time: 04/04/2023 1:00 PM Age: 72 years old Clinical indication: Cough TECHNIQUE: Imaging protocol: Radiologic exam of the chest. Views: 1 view. COMPARISON: CR XR chest 2V* [id number] 12/10/2020 1:11 PM FINDINGS: Lungs: Right basilar hazy opacity Pleural spaces: Right pleural effusion. No significant pneumothorax. Heart/Mediastinum: Cardiomediastinal silhouette is midline and normal in size. Bones/joints: No acute osseous findings. XR/XR chest 1V portable [id number] IMPRESSION: Right basilar opacity likely represents consolidation and/or atelectasis, with probable small underlying pleural effusion.
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
[2023-04-04 12:59] LABS: Basophils % 0.3 %; Eosinophils # 0.1 10^3/uL (0.0-0.8); Eosinophils % 0.9 %; Hematocrit 37.2 % (36-47); Lymphocytes # 1.4 10^3/uL (0.8-4.8); Lymphocytes % 15.9 %; Mean Corpuscular HGB Conc 30.4 g/dL (30-55); Mean Corpuscular Hemoglobin 25.9 pg (27-33); Mean Corpuscular Volume 85.1 fl (85-98); Mean Platelet Volume 10.6 fL (7.4-10.4); Monocytes # 0.6 10^3/uL (0.2-0.9); Monocytes % 6.6 %; Neutrophils # 6.65 10^3/uL (1.8-7.7); Neutrophils % 75.6 %; Nucleated Red Blood Cells % 0 %; Platelet Count 151 10^3/cmm (157-399); Red Blood Count 4.37 10^6/uL (3.85-5.65); Red Cell Distribution Width 16.4 % (12.1-15.1)
[2023-04-04 13:10] LABS: INR 1.18 (0.8-1.2)
[2023-04-04 13:15] LABS: Influenza A by IFA negative (Negative); Influenza B by IFA negative (Negative); Troponin(5th) Baseline 13 ng/L (0-10)
--- NOTE | 2023-04-04 13:15 | PC.PHAR ---
PT STATES ALL WARFARIN IS ON HOLD AT THIS TIME. 04/04/23
[2023-04-04 13:22] LABS: SARS Covid-2 Antigen positive (Negative)
[2023-04-04 13:38] LABS: Alanine Aminotransferase 24 U/L (0-33); Albumin Level 4.4 g/dL (3.5-5.2); Alkaline Phosphatase 107 U/L (35-105); Anion Gap 17.3 (5-19); Aspartate Amino Transferase 33 U/L (0-32); Blood Urea Nitrogen 16 mg/dL (8-23); Calcium 9.5 mg/dL (8.5-10.5); Carbon Dioxide 23 mmol/L (22-29); Chloride 103 mmol/L (98-107); Globulin 1.7 g/dL (1.3-4.6); Glucose 102 mg/dL (65-115); NT Pro B Type Natriuretic Pept 930 pg/mL (0-125); Osmolality Calculated 289 mOsm/kg (285-295); Potassium 4.3 mmol/L (3.5-5.1); Sodium 139 mmol/L (136-145); Total Bilirubin 1.5 mg/dL (0.15-1.2); Total Protein 6.1 g/dL (6.6-8.7)
== END 2023-04-04 13:43 | disposition home or self-care (01) ==
PROVIDERS: Emergency Provider Internal Medicine; PCP Nurse Practitioner
DX: U07.1 COVID-19 (principal); Z77.22 Contact with and (suspected) exposure to environmental tobacco smoke (acute) (chronic); I12.9 Hypertensive chronic kidney disease with stage 1 through stage 4 chronic kidney disease, or unspecified chronic kidney disease; E11.22 Type 2 diabetes mellitus with diabetic chronic kidney disease; N18.2 Chronic kidney disease, stage 2 (mild); E78.2 Mixed hyperlipidemia; Z79.01 Long term (current) use of anticoagulants
CPT/HCPCS: 36415; 71045; 80053; 83880; 84484; 85025; 85610; 87426; 87804; 93005; 93010; 99285

== ENCOUNTER 2023-05-06 13:34 | Outpatient (CLI) | payer MEDICARE, OTHER, SELFPAY ==
--- NOTE | 2023-05-06 15:00 | CTR_ITS ---
PROCEDURE INFORMATION: Exam: CT Abdomen And Pelvis With Contrast Exam date and time: 05/06/2023 3:00 PM Age: 72 years old Clinical indication: Prior surgery; Surgery date: 6+ months; Surgery type: Hyst; Patient HX: Bloating x 3 weeks; Additional info: R16.1 - splenomegaly, not elsewhere classified TECHNIQUE: Imaging protocol: Computed tomography of the abdomen and pelvis with contrast. Radiation optimization: All CT scans at this facility use at least one of these dose optimization techniques: automated exposure control; mA and/or kV adjustment per patient size (includes targeted exams where dose is matched to clinical indication); or iterative reconstruction. Contrast material: OMNI 350; Contrast volume: 95 ml; Contrast route: INTRAVENOUS (IV); REPORTING DATA: Count of CT and Cardiac NM exams in prior 12 months: This patient has received 0 known CTs and 0 known cardiac nuclear medicine studies in the 12 months prior to the current study. COMPARISON: CT abdomen pelvis wo con [id number] 09/21/2019 7:48 AM RADIATION DOSE METRICS: Total DLP (mGy-cm): 410.07 FINDINGS: Lungs: Mild compressive atelectasis in the lower lobes. Pleural spaces: Moderate/large bilateral pleural effusions. Liver: Slightly small liver with a slightly nodular contour, cirrhosis is probably present. Gallbladder and bile ducts: Normal. No calcified stones. No ductal dilation. Pancreas: Normal. No ductal dilation. Spleen: Marked 20 cm splenomegaly. Adrenal glands: Normal. No mass. Kidneys and ureters: Bilateral renal cysts, very tiny on the left. Stomach and bowel: Diverticulosis without evidence of diverticulitis. Appendix: No evidence of appendicitis. Intraperitoneal space: Moderate ascites. Vasculature: The portal vein is patent. Lymph nodes: Unremarkable. No enlarged lymph nodes. Urinary bladder: Unremarkable as visualized. Reproductive: Unremarkable as visualized. Bones/joints: Unremarkable. No acute fracture. Soft tissues: Unremarkable. CT/CT abdomen pelvis w con* [id number] IMPRESSION: 1. Marked splenomegaly. 2. Pleural effusions plus ascites. 3. Possible cirrhotic liver. COMMENTS: Consistent with the [place]'s Incidental Findings Committee white paper (J Am Zeke Radiol 2018): Any incidental renal lesion less than 1 cm or classified as too small to characterize, or any incidental cystic renal lesion characterized as simple-appearing, is likely benign. No follow-up imaging is recommended for these lesions per consensus recommendations based on imaging criteria.
[2023-05-06] MEDS: iohexol 350 mg/mL 500 mL Btl (per mL) PO (15:03)
[2023-05-06] MEDS: iohexol 350 mg/mL 500 mL Btl (per mL) IV (15:03)
== END 2023-05-06 13:35 | disposition home or self-care (01) ==
LOC: RAD 13:34
PROVIDERS: PCP Nurse Practitioner; Visit Provider Nurse Practitioner
DX: R16.1 Splenomegaly, not elsewhere classified (principal); R10.32 Left lower quadrant pain; K57.30 Diverticulosis of large intestine without perforation or abscess without bleeding; J90 Pleural effusion, not elsewhere classified; R18.8 Other ascites
CPT/HCPCS: 74177; Q9967

== ENCOUNTER → 2023-05-12 13:37 | Outpatient (BNVA) | payer MEDICARE, OTHER, SELFPAY | PROVIDERS: PCP Nurse Practitioner; Visit Provider Nurse Practitioner | DX: R16.1 Splenomegaly, not elsewhere classified (principal); R74.01 Elevation of levels of liver transaminase levels | CPT/HCPCS: 80053; 85025; 86664; 86665; 86705; 86706; 86709; 86803; 87340 ==

== ENCOUNTER → 2023-07-12 15:44 | Outpatient (BNVA) | payer MEDICARE, OTHER, SELFPAY | PROVIDERS: PCP Nurse Practitioner; Visit Provider Nurse Practitioner | DX: R18.8 Other ascites (principal); R16.1 Splenomegaly, not elsewhere classified; E11.65 Type 2 diabetes mellitus with hyperglycemia; D50.9 Iron deficiency anemia, unspecified | CPT/HCPCS: 80053; 83036; 83540; 84443; 85025 ==

== ENCOUNTER → 2023-10-18 10:22 | Outpatient (BNVA) | payer MEDICARE, OTHER, SELFPAY | PROVIDERS: PCP Nurse Practitioner; Visit Provider Internal Medicine Cardiovascular Disease | DX: I48.11 Longstanding persistent atrial fibrillation (principal); I13.0 Hypertensive heart and chronic kidney disease with heart failure and stage 1 through stage 4 chronic kidney disease, or unspecified chronic kidney disease; N18.2 Chronic kidney disease, stage 2 (mild); I50.32 Chronic diastolic (congestive) heart failure; E78.2 Mixed hyperlipidemia; I34.0 Nonrheumatic mitral (valve) insufficiency; Z79.01 Long term (current) use of anticoagulants | CPT/HCPCS: 99214 ==

== ENCOUNTER → 2023-12-02 10:03 | Outpatient (BNVA) | payer MEDICARE, OTHER, SELFPAY | PROVIDERS: PCP Nurse Practitioner; Visit Provider Nurse Practitioner | DX: K74.60 Unspecified cirrhosis of liver (principal); E78.2 Mixed hyperlipidemia; E11.65 Type 2 diabetes mellitus with hyperglycemia | CPT/HCPCS: 80053; 82607; 83036; 83540; 84443; 85025 ==

== ENCOUNTER → 2024-05-17 10:53 | Outpatient (BNVA) | payer MEDICARE, OTHER, SELFPAY | PROVIDERS: PCP Nurse Practitioner; Visit Provider Nurse Practitioner | DX: K59.01 Slow transit constipation (principal) | CPT/HCPCS: 74018 ==

== ENCOUNTER → 2024-05-30 12:10 | Outpatient (BNVA) | payer MEDICARE, OTHER, SELFPAY | PROVIDERS: PCP Nurse Practitioner; Visit Provider Nurse Practitioner | DX: D50.9 Iron deficiency anemia, unspecified (principal); E11.65 Type 2 diabetes mellitus with hyperglycemia | CPT/HCPCS: 80053; 83540; 85025 ==

== ENCOUNTER → 2024-08-22 15:54 | Outpatient (BNVA) | payer MEDICARE, OTHER, SELFPAY | PROVIDERS: PCP Nurse Practitioner; Visit Provider Nurse Practitioner | DX: E78.2 Mixed hyperlipidemia (principal); D50.9 Iron deficiency anemia, unspecified | CPT/HCPCS: 80053; 83540; 84443; 85025 ==

== ENCOUNTER → 2024-10-18 10:43 | Outpatient (BNVA) | payer MEDICARE, OTHER, SELFPAY | PROVIDERS: PCP Nurse Practitioner; Visit Provider Internal Medicine Cardiovascular Disease | DX: I48.11 Longstanding persistent atrial fibrillation (principal); Z79.01 Long term (current) use of anticoagulants; I34.0 Nonrheumatic mitral (valve) insufficiency; E78.2 Mixed hyperlipidemia; I13.0 Hypertensive heart and chronic kidney disease with heart failure and stage 1 through stage 4 chronic kidney disease, or unspecified chronic kidney disease; N18.2 Chronic kidney disease, stage 2 (mild); I50.32 Chronic diastolic (congestive) heart failure; R06.02 Shortness of breath; R06.09 Other forms of dyspnea | CPT/HCPCS: 36415; 80048; 83880; 99214 ==

== ENCOUNTER 2024-11-27 10:52 | Outpatient (CLI) | payer MEDICARE, OTHER, SELFPAY ==
--- NOTE | 2024-11-27 11:15 | USCV_ITS ---
Kristal Chung Age: 74 Gender: F : 1950 Exam Date: 11/27/2024 11:08 Ordering Phys: Isaiah Sloan MD ([email or web address]) Technologist: CARSON [place] [facility] [place]: AFIB BP: 112 / 60 HR: 78 Rhythm: Sinus Technical Quality: Adequate MEASUREMENTS (Male / Female) Normal Values 2D ECHO LV Diastolic Diameter PLAX 4.2 cm 4.2 - 5.9 / 3.9 - 5.3 cm IVS Diastolic Thickness 0.9 cm 0.6 - 1.0 / 0.6 - 0.9 cm IVS Systolic Thickness 1.3 cm LVPW Diastolic Thickness 0.8 cm 0.6 - 1.0 / 0.6 - 0.9 cm LVPW Systolic Thickness 1.4 cm LVOT Diameter 1.9 cm LV Ejection Fraction 2D Teich 61.2 % LV Ejection Fraction MOD 4C 61.8 % LV Ejection Fraction MOD 2C 62.8 % LV Ejection Fraction 2C AL 64.6 % LA Diameter 4.6 cm RA Systolic Volume 4C AL 83.9 ml RA Systolic Volume 4C MOD 82.7 ml LA Sys Volume AL 73.5 cm cubed LA Sys Volume Index AL 48.0 cm cubed/m squared Aorta at Sinotubular Diameter 1.8 cm DOPPLER AV Peak Velocity 100.0 cm/s LVOT Peak Velocity 92.0 cm/s AV Area Cont Eq vti 2.5 cm squared AV Area Cont Eq pk 2.6 cm squared MV Peak Velocity 91.0 cm/s MV Area PHT 3.5 cm squared Mitral E to A Ratio 0.4 TR Peak Velocity 120.0 cm/s TR Peak Gradient 5.8 mmHg TV Peak E Velocity 79.0 cm/s FINDINGS Left Ventricle Technically limited quality echocardiogram because of poor ultrasonic windows. LV systolic function is normal with EF of 60-65%. No regional wall motion abnormalities are seen. Grade 1 diastolic dysfunction. Right Ventricle Normal in size and function Right Atrium Dilated Left Atrium Dilated Mitral Valve Grossly normal. Mild mitral regurgitation. Aortic Valve Not well-visualized. No significant stenosis or regurgitation. Tricuspid Valve Insufficient TR jet to calculate RVSP. Pulmonic Valve Not well visualized Pericardium Normal Aorta Not well visualized IVC Not visualized CONCLUSIONS Technically limited quality echocardiogram because of poor ultrasonic windows. LV systolic function is normal with EF of 60-65%. Grade 1 diastolic dysfunction. Biatrial enlargement. Mild mitral regurgitation. Baltazar Swan MD (Electronically Signed) Final Date: 28 November 2024 11:15 S
== END 2024-11-27 10:53 | disposition home or self-care (01) ==
LOC: RAD 10:54
PROVIDERS: PCP Nurse Practitioner; Visit Provider Internal Medicine Cardiovascular Disease
DX: R06.09 Other forms of dyspnea (principal); I51.7 Cardiomegaly; I34.0 Nonrheumatic mitral (valve) insufficiency; I51.89 Other ill-defined heart diseases
CPT/HCPCS: 93306